=== PATIENT | female | born 1990 | race African-American/Black ===

== ENCOUNTER 2019-05-28 08:32 | Emergency (ER) | payer OTHER ==
[~2019-05-28] VITALS: Ht 170.2 cm; Wt 76.7 kg
[2019-05-28 08:47] VITALS: Ht 170.2 cm; Wt 76.7 kg
[2019-05-28 09:40] LABS: PLATELET COUNT 166 x10^3mcL (130-400); RED CELL DISTRIBUTION WIDTH 19.1 % (11.5-14.5)
[2019-05-28 09:43] LABS: CALCIUM 8.3 mg/dL (8.5-10.1); CARBON DIOXIDE 25.6 mmol/L (21-32); CHLORIDE SERUM 105 mmol/L (98-107); CREATININE SERUM 0.7 mg/dL (0.6-1.0); GFR1 > 60 mL/min; GLUCOSE SERUM 93 mg/dL (74-106); POTASSIUM SERUM 3.6 mmol/L (3.5-5.1); SODIUM SERUM 139 mmol/L (136-145)
[2019-05-28 09:48] LABS: ALBUMIN 3.8 g/dL (3.4-5.0); ALKALINE PHOSPHATASE 44 U/L (46-116); ALT/SGPT 11 U/L (14-59); AST/SGOT 6 U/L (15-37); LIPASE 76 IU/L (73-393)
[2019-05-28 10:33] LABS: BAND NEUTROPHIL 2 % (0-10); BASOPHIL 0 % (0-2); MONOCYTE 20 % (0-7); SEGMENTED NEUTROPHILS 53 % (37-75); rbc morphology (normal/abnorm) ABNORMAL (NORMAL); target cell (codocyte) 1+; tear drop cell (dacryocyte) 1+
[2019-05-28 10:34] LABS: PLATELET MORPHOLOGY LARGE PLATELET SEEN; ovalocyte/elliptocyte 1+; schistocyte (helmet cell) 1+
[2019-05-28 11:39] VITALS: BP 122/73
== END 2019-05-28 11:39 | disposition home or self-care (01) ==
LOC: ED 08:32
PROVIDERS: Emergency Medicine
DX: R10.30 Lower abdominal pain, unspecified (principal); M54.9 Dorsalgia, unspecified; R11.2 Nausea with vomiting, unspecified; E05.00 Thyrotoxicosis with diffuse goiter without thyrotoxic crisis or storm; Z98.890 Other specified postprocedural states
CPT/HCPCS: J1885; J2270; J2405

== ENCOUNTER 2019-06-29 06:28 | Emergency (ER) | payer OTHER ==
[~2019-06-29] VITALS: Ht 170.2 cm; Wt 530.8 kg
[2019-06-29 06:33] VITALS: Ht 170.2 cm; Wt 530.8 kg
[2019-06-29 07:20] LABS: CALCIUM 7.9 mg/dL (8.5-10.1); CARBON DIOXIDE 26.2 mmol/L (21-32); CHLORIDE SERUM 105 mmol/L (98-107); CREATININE SERUM 0.8 mg/dL (0.6-1.0); GFR1 > 60 mL/min; GLUCOSE SERUM 93 mg/dL (74-106); POTASSIUM SERUM 3.5 mmol/L (3.5-5.1); SODIUM SERUM 141 mmol/L (136-145)
[2019-06-29 07:25] LABS: ALBUMIN 3.7 g/dL (3.4-5.0); ALKALINE PHOSPHATASE 50 U/L (46-116); ALT/SGPT 10 U/L (14-59); AST/SGOT 7 U/L (15-37); BILIRUBIN TOTAL 0.58 mg/dL (0.20-1.00); LIPASE 76 IU/L (73-393); TOTAL PROTEIN, SERUM 8.1 g/dL (6.4-8.2)
[2019-06-29 07:59] LABS: microscopic required? NO
[2019-06-29 08:16] LABS: PLATELET COUNT 172 x10^3mcL (130-400)
[2019-06-29 08:17] LABS: BASOPHIL % 0 % (0-2); RED CELL DISTRIBUTION WIDTH 19.6 % (11.5-14.5)
[2019-06-29 09:01] LABS: UA SPECIFIC GRAVITY 1.015 (1.005-1.035); urine erythrocyte NEGATIVE (NEGATIVE)
[2019-06-29 10:00] VITALS: BP 117/65
== END 2019-06-29 10:00 | disposition home or self-care (01) ==
LOC: ED 06:28
PROVIDERS: Emergency Medicine
DX: K59.00 Constipation, unspecified (principal); R51 Headache; Z98.890 Other specified postprocedural states
CPT/HCPCS: J1200; J2270; J2765; J7030; Q9967

== ENCOUNTER 2019-06-30 00:42 | Emergency (ER) | payer OTHER ==
[~2019-06-30] VITALS: Ht 170.2 cm; Wt 78.5 kg
[2019-06-30 00:49] VITALS: Ht 170.2 cm; Wt 78.5 kg
[2019-06-30 03:36] VITALS: BP 135/80
== END 2019-06-30 03:32 | disposition home or self-care (01) ==
LOC: ED 00:42
DX: N83.201 Unspecified ovarian cyst, right side (principal); Z98.890 Other specified postprocedural states
CPT/HCPCS: Q0092; Q0162